=== PATIENT | female | born 1990 | race African-American/Black ===

== ENCOUNTER 2020-01-31 14:14 | Emergency (ER) | payer SELFPAY ==
[2020-01-31 14:21] VITALS: BP 147/81
[2020-01-31] MEDS ORDERED: LIDOCAINE 2% VISCOUS SOLN 15 ML UDCUP PO ONE (14:53)
--- NOTE | 2020-01-31 14:53 | ER Document Report ---
HPI - HPI Time Seen by Provider: 01/31/20 14:50 Pain Level: 5 Notes: Otherwise healthy 30-year-old female presenting to the emergency department with complaints of left-sided dental pain that is radiating up into her left ear. She reports this pain started approximately 2 days ago. She was reporting pain starting at the left lower side of her mouth. She denies any drainage from the area or any fevers. She reports she is able to eat and drink without difficulty. - REPRODUCTIVE Reproductive: DENIES: : Past Medical History - General Information source: Patient - Social History Smoking Status: Never Smoker Frequency of alcohol use: None Drug Abuse: None Family History: Reviewed & Not Pertinent Patient has homicidal ideation: No - Medical History Medical History: Negative Surgical Hx: Negative - Immunizations Immunizations up to date: Yes Vertical Provider Document - CONSTITUTIONAL Notes: PHYSICAL EXAMINATION: GENERAL: Well-appearing, well-nourished and in no acute distress. HEAD: Atraumatic, normocephalic. EYES: Pupils equal round extraocular movements intact, conjunctiva are normal. ENT: Nares patent, erythema surrounding tooth #17, tooth #17 appears to be coming in sideways and pushing on tooth #18. No kermit abscess, no trismus, swallowing without difficulty. No facial swelling. Bilateral TMs and canals unremarkable. NECK: Normal range of motion LUNGS: No respiratory distress Musculoskeletal: Normal range of motion NEUROLOGICAL: Normal speech, normal gait. PSYCH: Normal mood, normal affect. SKIN: Warm, Dry, normal turgor, no rashes or lesions noted. Course - Re-evaluation Re-evalutation: Presentation is most consistent with likely an infected tooth. Airway is patent. Vitals within normal limits. Patient is able swallow without any difficulty. There is no significant facial swelling. No evidence of Ki angina, apical abscess, or airway obstruction. Patient will be started on antibiotics. I've instructed to follow-up with dentistry as earliest ability for definitive management. At this time will discharge with return precautions and follow-up recommendations. Verbal discharge instructions given a the bedside and opportunity for questions given. Medication warnings reviewed. Patient is in agreement with this plan and has verbalized understanding of return precautions and the need for primary care follow-up in the next 24-72 hours. - Vital Signs Vital signs: Temp Pulse Resp BP Pulse Ox 98.2 F 56 L 18 147/81 H 98 01/31/20 14:47 01/31/20 14:20 01/31/20 14:20 01/31/20 14:20 01/31/20 14:20 Discharge - Discharge Clinical Impression: Pain, dental Condition: Stable Disposition: HOME, SELF-CARE Additional Instructions: You have been seen for dental pain. It is very important that you follow-up with a dentist for definitive care. Please return if you develop fever greater than 101, swelling in your face, vomiting, difficulty breathing or swallowing, or any other symptoms that are concerning to you. For pain you should take ibuprofen 800 mg every 8 hours as needed. Prescriptions: Penicillin V Potassium [Penicillin Vk 500 mg Tablet] 500 mg PO BID #20 tablet
== END 2020-01-31 15:00 | disposition home or self-care (01) ==
LOC: ER 14:14
DX: K08.9 Disorder of teeth and supporting structures, unspecified (principal)
CPT/HCPCS: 99282; J3490